=== PATIENT | female | born 1970 | race Caucasian/White ===

== ENCOUNTER 2017-08-23 14:45 | Emergency (ER) | payer SELFPAY ==
[2017-08-23] MEDS ORDERED: LORazepam 1 MG TAB PO PRN (16:06)
[2017-08-23] MEDS ORDERED: NS 1,000 ML IV ONE ×2 (16:06→17:36)
[2017-08-23] MEDS ORDERED: LORazepam 2 MG/ML INJ IVP PRN (16:06)
--- NOTE | 2017-08-23 16:06 | EDPHY ---
Addendum entered and electronically signed by Joshua Ewing MD 08/23/17 18:02 : EKG interpreted by me shows sinus tachycardia with normal interval and axis. QRS is normal there is no significant ST elevation or depression. The rate is 102 Original Note: General - History Smoking Status: Heavy smoker Time Seen by Provider: 08/23/17 15:59 Narrative: CHIEF COMPLAINT: Alcohol withdrawal, shortness of breath, palpitation HISTORY OF PRESENT ILLNESS: Patient presents with complaints of alcohol withdrawal, stations shortness of breath. She says that she is "detoxing from alcohol," and symptoms started about 4 hr ago. Preceding that she has some palpitations shortness of breath. Palpitations painful. She has been wheezing and having some difficulty breathing. She has no exertional pain. No radiating pain. No diaphoresis, nausea. She feels related to the fall. She typically ingest at least 10 shots of clear liquor daily. She had 2 shots over this morning and no further alcohol today. She says "that's way longer than I usually go." She has no history of hypertension, diabetes or coronary artery disease. No previous cardiac complaints. She does have asthma continues to smoke. No other associated complaints or modifying factors. REVIEW OF SYSTEMS: Ten systems reviewed and are negative unless otherwise noted in the HPI PCP: [facility] SPECIALISTS: None PAST MEDICAL HISTORY: Asthma, alcohol abuse PAST SURGICAL HISTORY: No recent surgical history SOCIAL HISTORY: Daily smoker 1 pack per day. Daily 10 shot ingestion of clear liquor. Occasional marijuana use. FAMILY HISTORY: No coronary artery disease in primary relatives. EXAMINATION General Appearance: Alert, no distress, fidgeting. Well-developed well- nourished. Head: normocephalic, atraumatic Eyes: Pupils equal and round, no conjunctival pallor or injection ENT, Mouth: Mucous membranes moist Neck: Normal inspection, supple, non-tender Respiratory: Mild scattered expiratory wheezing. Mild rhonchi. No crackles or diminishment. No retractions or distress. Cardiovascular: Regular rate and rhythm. No murmur. Symmetric radial pulses 2 +. Gastrointestinal: Abdomen is soft and nontender Neurological: GCS 15. A&O, nonfocal, normal gait. Mild resting tremor. No pronator drift. Normal [id number]. Skin: Warm and dry, no rash no petechiae or purpura Extremities: Nontender, no pedal edema Psychiatric: Fidgeting. Denies SI or HI. Mood and affect normal DIFFERENTIAL DIAGNOSES: Including but not limited to acute alcohol withdrawal, delirium tremens, coronary artery disease, ACS, asthma exacerbation, COPD, pneumonia, bronchitis MDM: 4:05 p.m. Alcohol withdrawal without signs of delirium tremens to me, accompanied by some shortness of breath, wheezing and palpitations. I have ordered cardiac workup and ED alcohol withdrawal protocol. I have also ordered a DuoNeb treatment. I do feel this is related to alcohol withdrawal, but I do not appreciate delirium tremens. Low suspicion for coronary artery disease or cardiopulmonary involvement. 4:20 p.m. Initial CIWA score is 8 5:00 p.m. CBC is unremarkable. At point care troponin is negative. Chest x-ray is pending. She is resting comfortably in no acute distress. 5:20 p.m. Troponin is negative. D-dimer is negative. Chest x-ray is unremarkable for pneumonia or abnormality. I have re-evaluated the patient at this time and she is resting comfortably. She still mildly tachycardic but says she feels much better. She has not had any palpitations or pain since administration of the Ativan. Repeat CIWA score is currently being obtained. 5:30 p.m. Case discussed with Dr. Ewing and he will evaluate the patient. 5:55 p.m. Patient has been evaluated Dr. Ewing. Agrees the patient stable for transport to the [facility] for monitor detoxification. The patient is still somewhat somnolent from her Ativan, thus we will allow her to awake more. She is also receiving 2nd L of IV fluid. She is awake alert no acute distress. She is afebrile and has been so. She is not tremulous. She has no symptoms at this time. I do not see any evidence of delirium tremens and I do feel she is stable for transport for detox. Heart score is 1 due to age 47. SUPERVISION: Patient was evaluated and examined in conjunction with my secondary supervising physician as documented. We have both examined the patient. (Kj Bejarano) Medical Decision Making: I have also seen this patient in the emergency department. Reviewed the history of alcoholism. She remains slightly tachycardic. She is getting fluids and has had Ativan. However she is alert and oriented. She has been ambulatory to the bathroom. She is currently eating a sandwich and having normal conversation with me. I think that this is alcohol withdrawal and the plan will [facility] to [facility] on Librium protocol (Joshua Ewing) - Objective Vital Signs: Initial Vital Signs Temperature (C) 98.2 F 08/23/17 14:49 Heart Rate 116 H 08/23/17 14:49 Respiratory Rate 20 08/23/17 14:49 Blood Pressure 128/87 H 08/23/17 14:49 O2 Sat (%) 95 08/23/17 14:49 O2 Delivery Mode Room Air Allergies/Adverse Reactions: Penicillins Allergy (Severe, Verified 08/23/17 14:48) Hives Home Medications: Medication Instructions Recorded Advair Hfa 115-21 Mcg Inhaler 09/28/15 Albuterol 09/28/15 Laboratory Results: Laboratory Results 08/23/17 16:27 08/23/17 16:27 Medications Given: Discontinued Medications Albuterol Sulfate (Proventil Inh Prepack) 1 mdi TAKEHOME EDNOW ONE Stop: 08/23/17 17:54 Last Admin: 08/23/17 18:33 Dose: 1 mdi Albuterol/Ipratropium (Duoneb) 3 ml IH EDNOW ONE Stop: 08/23/17 16:14 Last Admin: 08/23/17 16:26 Dose: 3 ml Chlordiazepoxide (Librium 25 Mg Prepack#6) 1 btl TAKEHOME EDNOW ONE Stop: 08/23/17 17:53 Last Admin: 08/23/17 18:33 Dose: 1 btl Sodium Chloride (Ns) 1,000 mls @ 0 mls/hr IV EDNOW ONE; Wide Open PRN Reason: Protocol Stop: 08/23/17 16:07 Last Admin: 08/23/17 16:24 Dose: 1,000 mls Sodium Chloride (Ns) 1,000 mls @ 0 mls/hr IV EDNOW ONE; Wide Open PRN Reason: Protocol Stop: 08/23/17 17:37 Last Admin: 08/23/17 18:32 Dose: 1,000 mls Lorazepam (Ativan Injection) 0 mg IVP Q1H PRN; Protocol PRN Reason: Alcohol Withdrawal w/IV access Stop: 08/24/17 04:06 Last Admin: 08/23/17 16:26 Dose: 2 mg Point of Care Test Results: Chemistry 08/23/17 16:43 POC Troponin I 0.00 ng/mL ng/mL (0.00-0.08) Departure - Departure Disposition: Home, Routine, Self-Care Clinical Impression: Alcohol withdrawal Qualifiers: Complication of substance-induced condition: uncomplicated Qualified Code(s): F10.230 - Alcohol dependence with withdrawal, uncomplicated Alcohol dependence Qualifiers: Substance use status: uncomplicated Qualified Code(s): F10.20 - Alcohol dependence, uncomplicated Condition: Good Instructions: Chlordiazepoxide (By mouth), Albuterol (By breathing), Alcohol Intoxication (ED), Abuse of Alcohol (ED) Additional Instructions: 1. Proceed to [facility] by cab with Librium protocol provided 2. Return to emergency department for any return of her symptoms, exertional pain, shortness of breath or difficulty breathing 3. ED precautions as discussed Referrals: [facility]NO SPECIFIC [Other] - As per Instructions [facility] 24 Hours [Outside] - As per Instructions
[2017-08-23] MEDS ORDERED: IPRATROPIUM/ALBUTEROL 3 ML DEYVIAL IH ONE (16:13)
--- NOTE | 2017-08-23 16:41 | CPEKG ---
Heart Rate: 102 RR Interval: 588 P-R Interval: 128 QRSD Interval: 76 QT Interval: 360 QTC Interval: 469 P Wickliffe: 71 QRS Wickliffe: 72 T Wave Wickliffe: 68 EKG Severity - OTHERWISE NORMAL ECG - EKG Impression: SINUS TACHYCARDIA EKG Impression: VENTRICULAR PREMATURE COMPLEX Electronically Signed By: Joshua Ewing 23-Aug-2017 21:57:50
[2017-08-23 16:53] LABS: PLATELET COUNT 172 10^3/uL (150-400)
[2017-08-23] MEDS ORDERED: ONDANSETRON 4 MG/2 ML VIAL ONE (16:55)
[2017-08-23 17:02] LABS: INR 0.89 (0.83-1.16); PROTIME(PATIENT) 12.3 SEC (12.0-15.0)
[2017-08-23] MEDS ORDERED: CHLORDIAZEPOXIDE 25MG PREPK#6 BTL TAKEHOME ONE (17:52)
[2017-08-23] MEDS ORDERED: ALBUTEROL INH PREPACK MDI TAKEHOME ONE (17:53)
[2017-08-23 19:05] VITALS: BP 134/62
[2017-08-23] MEDS ORDERED: RANITIDINE 50 MG/2 ML VIAL ONE (20:16)
[2017-08-23] MEDS ORDERED: EPINEPHrine KIT (USE FOR EPIPEN) 1 MG/ML IM ONE (20:16)
[2017-08-23] MEDS ORDERED: methylPREDNISolone SOD SUCC 125 MG/2 ML VIAL ONE (20:16)
== END 2017-08-23 19:03 | disposition home or self-care (01) ==
DX: F10.239 Alcohol dependence with withdrawal, unspecified (principal); E86.9 Volume depletion, unspecified
CPT/HCPCS: 84484-PO; 96374; G0480; J0171; J1200; J2060; J2405; J2780; J2930

== ENCOUNTER 2017-09-17 16:06 | Emergency (ER) | payer SELFPAY ==
--- NOTE | 2017-09-17 16:18 | EDPHY ---
H & P Time Seen by Provider: 09/17/17 16:12 HPI/ROS: CHIEF COMPLAINT: "I"m just drunk you fucker" HISTORY OF PRESENT ILLNESS: 47-year-old female [facility] after her family [facility] however the [facility] felt that she was too intoxicated to be there. She admits to alcohol use, stay history of alcoholism. She has no complaints of pain or discomfort. She admits to heavy alcohol abuse, denies suicidal or homicidal ideation PRIMARY CARE PROVIDER: REVIEW OF SYSTEMS: A ten point review of systems was performed and is negative with the exception of the items mentioned in the HPI PAST MEDICAL & SURGICAL HISTORY: Alcoholism SOCIAL HISTORY: Admits to heavy alcohol use prior to arrival PHYSICAL EXAM (Prior to examination, patient consented to physical exam, hands were washed and my usual and customary physical exam procedures followed) 1) GENERAL: Well-developed, well-nourished, alert and oriented. Appears to be in no acute distress. Cursing, spitting, yelling 2) HEAD: Normocephalic, atraumatic 3) HEENT: Pupils equal, round, reactive to light bilaterally. Sclera anicteric. 4) NECK: Full range of motion, no meningeal signs. 5) LUNGS: Clear auscultation bilaterally, no wheezes, no rhonchi, no retractions. 6) HEART: Regular rate and rhythm, no murmur, no heave, no gallop. 7) ABDOMEN: No guarding, no rebound, no focal tenderness, 8) MUSCULOSKELETAL: No peripheral edema or discoloration. 9) BACK: , no obvious trauma, no visual or palpable abnormality. 10) SKIN: No rash, no petechiae. 11) Psychiatric: Patient is oriented X 3, there is no agitation. DIFFERENTIAL DIAGNOSIS: In no particular orderincluding but not limited to hypoglycemia, infectious process, electrolyte abnormality, head injury and intoxicants. Smoking Status: Heavy smoker Constitutional: Initial Vital Signs Temperature (C) 36.7 C 09/17/17 16:06 Heart Rate 103 H 09/17/17 16:06 Respiratory Rate 19 09/17/17 16:06 Blood Pressure 133/90 H 09/17/17 16:06 O2 Sat (%) 93 09/17/17 16:06 O2 Delivery Mode Room Air Allergies/Adverse Reactions: Penicillins Allergy (Severe, Verified 08/23/17 14:48) Hives Home Medications: Medication Instructions Recorded Advair Hfa 115-21 Mcg Inhaler 09/28/15 Albuterol 09/28/15 MDM/Departure - MDM Medications Given: Discontinued Medications Chlordiazepoxide (Librium 25 Mg Prepack#6) 1 btl TAKEHOME EDNOW ONE Stop: 09/17/17 16:24 Last Admin: 09/17/17 16:27 Dose: 1 btl Chlordiazepoxide HCl (Librium) 25 mg PO EDNOW ONE Stop: 09/17/17 16:24 Last Admin: 09/17/17 16:27 Dose: 25 mg ED Course/Re-evaluation: 4:30 p.m.: Patient is awake alert oriented person place time events, clear speech pattern, able to ambulate without assistance. I think she can be [facility] at [facility]. She will be going to the [facility] with Librium prepack. She denies suicidal homicidal ideation. Doubt delirium tremens. Doubt alcoholic hallucinosis. I saw this patient independently based on established practice protocols. Care of patient under supervision of primary supervising physician Dr Elvis Russell - Depart Disposition: Home, Routine, Self-Care Clinical Impression: Alcohol abuse Condition: Good Instructions: Chlordiazepoxide (By mouth), Abuse of Alcohol (ED) Referrals: [facility] 24 Hours [Outside] - 09/17/17 3:00 pm
[2017-09-17 16:20] VITALS: BP 133/90
[2017-09-17] MEDS ORDERED: CHLORDIAZEPOXIDE 25MG PREPK#6 BTL TAKEHOME ONE (16:23)
[2017-09-17] MEDS ORDERED: chlordiazePOXIDE 25 MG CAP PO ONE (16:23)
== END 2017-09-17 16:35 | disposition home or self-care (01) ==
LOC: EDUNIT#
DX: F10.10 Alcohol abuse, uncomplicated (principal); F17.200 Nicotine dependence, unspecified, uncomplicated